=== PATIENT | male | born 1970 | race Caucasian/White ===

== ENCOUNTER 2019-12-04 19:25 | Emergency (ER) | payer MEDICAID, SELFPAY ==
[2019-12-04 19:37] VITALS: BP 155/102; PULSE 71; RESP 16; TEMP 36.7; O2SAT 98
--- NOTE | 2019-12-04 19:37 | W.ED.GENAD ---
Discharge Plan Disposition Patient Disposition: HOME Condition: Good Discharge Details Clinical Impression: Finger laceration Primary Care Provider: Michel Negrete ED Provider: Ewa Potts Home Meds and New Rx's Prescriptions: No Action No Known Home Meds RF: 0 Discharge Instructions Instructions: Finger Laceration (ED) Additional Instructions: keep dressing clean and dry for next 24 hours, then can change dressing. wash daily with warm soapy water, rinse completely, pat dry, apply dry dressing to protect elevate to reduce swelling can use ibuprofen and or acetaminophen as directed for pain. return in 7-10 days for suture removal. return sooner for new or worsening symptoms, concern for infection including fever, drainage, increased pain Medical Decision Making cut on kitchen knife, tetanus update within 5 years. LET applied, wound irrigated well with NS. wound bed examined, no debris or foreign body noted, further anesthetized with lidocaine 1 %. wound closed using 4-0 ethilon suture material . bacitracin and dry dressing applied. HPI General Date/Time Provider Initiated Documentation: 12/04/19 19:35. Limitations to Documentation: no limitations. Information obtained by: patient. HPI Narrative: cut left finger on a kitchen knife, bleeding controlled, last tetanus 5 years ago Related Data Home Medications Medication Instructions Recorded Confirmed Unknown [No Known Home Meds] 12/04/19 12/04/19 Allergies Allergy/AdvReac Type Severity Reaction Status Date / Time No Known Allergies Allergy Unverified 12/04/19 19:37 General HARSHAD: 4 Review of Systems All systems reviewed & are unremarkable except as noted in HPI and below Constitutional Constitutional: Denies weakness Musculoskeletal Musculoskeletal: Denies tingling Integumentary/Breasts Skin/Breast: Reports other (laceration approx 1/2 cm over DIP joint) Neurologic Neurologic: Denies sensory deficit, Denies tingling and Denies weakness Hematologic/Lymphatic Hematologic/Lymphatic: Denies easy bleeding and Denies easy bruising [facility] Social History Smoking/Tobacco Use Status: Never Alcohol Intake: current Alcohol Intake frequency: holidays/special occasions only Drug use: Never Substance use type: does not use Do you feel safe at home: Yes Do you feel safe in your relationship?: Yes Exam Const General: cooperative, healthy appearing, comfortable and no acute distress Nutritional Appearance: average body habitus Orientation: alert, awake and oriented x3 HENMT Head: normal to inspection, normocephalic and atraumatic Resp Effort & Inspection: normal respiratory effort Cardio Rate: regular rate Rhythm: regular rhythm and other (radial pulse) Skin Lesions: lesion noted (laceration, 1/2 cm across palmar aspect of left DIP) Rashes: no rashes Neuro General: patient alert, patient awake and patient oriented x3 Cognition: normal cognition
[2019-12-04] MEDS: Lidocaine/Epinephri/Tetracaine Topical Gel 3 ML TP (19:42)
== END 2019-12-04 20:30 | disposition home or self-care (01) ==
PROVIDERS: Emergency Provider Nurse Practitioner Acute Care; PCP Family Medicine
DX: S61.211A Laceration without foreign body of left index finger without damage to nail, initial encounter (principal); W26.0XXA Contact with knife, initial encounter
CPT/HCPCS: 12001

== ENCOUNTER 2025-01-10 14:49 | Emergency (ER) | payer OTHER, SELFPAY ==
[2025-01-10 14:50] VITALS: BP 202/97; PULSE 50; RESP 20; TEMP 36.4; O2SAT 98
--- NOTE | 2025-01-10 15:22 | ED.GENADUL_ITS ---
Discharge Plan Disposition Patient Disposition: Home Discharge Details Clinical Impression: Laceration of right thumb, Numbness of right thumb, Elevated blood pressure reading without diagnosis of hypertension Primary Care Provider: Gregorio Sparks ED Provider: Atul Evans Home Meds and New Rx's Prescriptions: No Action No Known Home Meds Discharge Instructions Instructions: Laceration Repair With Stitches ED, Wound Care ED Additional Instructions: As discussed, should you not regain sensation in your, follow-up with the orthopedic office Monday to schedule a visit. Often digital nerve injuries may need repair but then several weeks to improve sensation. Otherwise continue monitor your injury for signs of infection including rash redness swelling fever, chills, nausea or vomiting. If you develop any of the symptoms of seek evaluation emergency department. Please follow-up with the emergency department, primary care or urgent care for suture removal (four total sutures) in 14 days to allow full healing of this wound site. Stand Alone Forms: Portal Information Referrals: Gorge Valdez MD [ [facility] STAFF PHYSICIAN, Orthopaedic Surgical] - 1 week Clinical Impression: Numbness of right thumb; Laceration of right thumb Discharge Data Discharge Date/Time-TO BE ENTERED AT DEPARTURE: 01/10/25 15:35 HPI General Date/Time Provider Initiated Documentation: 01/10/25 14:52 . HPI Narrative: MDM/Narrative: 54-year-old male presents for thumb laceration. Laceration explored and repaired. Given reported numbness, will refer patient to the orthopedics clinic should he have persistent numbness for further management. Clinical impression: Laceration of right thumb Numbness of right thumb Elevated blood-pressure reading without diagnosis of hypertension Disposition: Home HPI: 54-year-old male presents for evaluation of laceration to right thumb which occurred just prior to arrival. Patient states he Was carrying a glass bottleof [employer] when he slipped and fell onto the glass causing a laceration thumb. Notes that he is able to move the thumb however notes numbness to the tip of the thumb as well patient has had a Tdap in 2020, denies any other injuries. Patient also notes labile blood pressure when visiting the doctor previously but notes that his chronic blood pressures are typically within range. ROS: Negative besides as mentioned above Exam: Gen: A&O NAD HEENT: NCAT, EOMI, not icteric. External ears normal. No rhinorrhea. Moist mucous membranes. Neck: Supple, full range of motion, no observable masses, No meningeal sign. Lungs: No Respiratory distress. CV: RRR, no edema. Abdomen: Soft, nondistended, No rebound tenderness. MSK: No joint swelling, no redness. There is a 3 cm curvilinear laceration just proximal to the palmar aspect of the IP joint of the right thumb, with minimal active hemorrhage. Wound was explored and washed, no foreign bodies noted. Patient reports numbness to the tip of the thumb however flexion extension opposition all intact Skin: No rashes, petechiae, lesions. Normal color per patient. Neuro: Normal Gait, Grossly intact. Psych: Appropriate for situation. Related Data Home Medications ?Medication ?Instructions ?Recorded ?Confirmed Unknown [No Known Home Meds] 12/04/19 1 03/12/24 Allergies Allergy/AdvReac Type Severity Reaction Status Date / Time No Known Allergies Allergy Unverified 01/10/25 14:52 General Stated Complaint: Laceration HARSHAD: 4 Course Vital Signs Vital signs: Vital Signs Temperature 36.4 C L 01/10/25 14:50 Pulse 50 L 01/10/25 14:50 Respiratory Rate 20 01/10/25 14:50 Blood Pressure 202/97 H 01/10/25 14:50 Pulse Oximetry 98 01/10/25 14:50 Temperature 36.4 C L 01/10/25 14:50 Pulse 50 L 01/10/25 14:50 Respiratory Rate 20 01/10/25 14:50 Blood Pressure 202/97 H 01/10/25 14:50 Pulse Oximetry 98 01/10/25 14:50 Oxygen Delivery Method Room Air 01/10/25 14:50 Oxygen Flow Rate 0 01/10/25 14:50 Procedure Laceration Laceration 1: Date of Procedure: 01/10/25 Time of procedure: 15:22 Patient Consented: Verbally Site: hand Description: linear Depth: simple, single layer Local anesthetic: Lidocaine 1% and with Epi Amount of anesthesia used (mL): 4 Skin layer closed with: other (Ethilon) Suture size: 4-0 Number of sutures:: 4 Technique: simple, interrupted PFSH All Active Problems (Updated 01/10/25 @ 15:25 by Atul Evans MD) Elevated blood pressure reading without diagnosis of hypertension (Acute) Numbness of right thumb (Acute) Laceration of right thumb (Acute) Social History Smoking/Tobacco Use Status: Never Smoking risk assessment performed?: Yes Alcohol Intake: current Alcohol Intake frequency: holidays/special occasions only Drug use: Never Substance use type: does not use Do you feel safe at home: Yes Do you feel safe in your relationship?: Yes
[2025-01-10] MEDS: Lidocaine 1% Pres-Free W/EPI 1/200,000 30 ML VIAL IJ (15:32)
== END 2025-01-10 15:35 | disposition home or self-care (01) ==
LOC: ER 15:50
PROVIDERS: Emergency Provider General Practice; PCP Family Medicine
DX: S61.011A Laceration without foreign body of right thumb without damage to nail, initial encounter (principal); W25.XXXA Contact with sharp glass, initial encounter; R03.0 Elevated blood-pressure reading, without diagnosis of hypertension
CPT/HCPCS: 12002; J2004